=== PATIENT | male | born 1995 ===

== ENCOUNTER 2017-06-24 11:08 | Emergency (ER) | payer SELFPAY ==
[2017-06-24 11:26] VITALS: BP 119/58; PULSE 61; RESP 14; TEMP 97.7; O2SAT 99
--- NOTE | 2017-06-24 11:38 | PD ---
HPI Chief Complaint: Injury Time Seen by Provider: 11:31 Travel History International Travel<30 days: No Contact w/Intl Traveler<30days: No Traveled to known affect area: No History of Present Illness HPI 21-year-old -[place] male presents emergency department with injury to the left lateral ankle and dorsal proximal foot. 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 He now has pain and swelling in this area. He has difficulty walking without a limp. Pain is about an 8 out of 10. No numbness or tingling. No loss of function. He has been icing it with some relief. No known drug allergies. PFSH Past Medical History Medical History: Denies Significant Hx Tetanus Vaccination: < 5 Years Past Surgical History Surgical History: No Previous Surgery Social History Alcohol Use: No Tobacco Use: No Substance Use: No Allergies-Medications (Allergen,Severity, Reaction): Coded Allergies: No Known Allergies (Unverified , 06/24/17) Reported Meds & Prescriptions Reported Meds & Active Scripts Active No Active Prescriptions or Reported Medications Review of Systems Except as stated in HPI: all other systems reviewed are Neg General / Constitutional: No: Fever Eyes: No: Visual changes HENT: No: Headaches Cardiovascular: No: Chest Pain or Discomfort Respiratory: No: Shortness of Breath Gastrointestinal: No: Abdominal Pain Genitourinary: No: Dysuria Musculoskeletal: Positive: Arthralgias, Limited ROM, Pain Skin: No Rash Neurologic: No: Weakness Psychiatric: No: Depression Endocrine: No: Polydipsia Hematologic/Lymphatic: No: Easy Bruising Physical Exam Narrative GENERAL: Patient appears in mild distress per SKIN: Warm and dry. Normal color. Normal turgor. HEAD: Atraumatic. Normocephalic. EYES: Pupils equal and round. No scleral icterus. No injection or drainage. ENT: No nasal bleeding or discharge. Mucous membranes pink and moist. Pharynx is clear. Airways patent NECK: Trachea midline. Supple and nontender CARDIOVASCULAR: Regular rate and rhythm. RESPIRATORY: No accessory muscle use. Clear to auscultation. Breath sounds equal bilaterally. GASTROINTESTINAL: Abdomen soft, non-tender, nondistended. Hepatic and splenic margins not palpable. MUSCULOSKELETAL: Extremities without clubbing, cyanosis, or edema. No obvious deformities. Patient has mild swelling over the left lateral malleolus with tenderness with palpation and motion. Range of motion is limited only by pain. No loss of function. Normal neurological and vascular exam. NEUROLOGICAL: Awake and alert. No obvious cranial nerve deficits. Motor grossly within normal limits. Five out of 5 muscle strength in the arms and legs. Normal speech. PSYCHIATRIC: Appropriate mood and affect; insight and judgment normal. Data Data Last Documented VS Vital Signs Date Time Temp Pulse Resp B/P (MAP) Pulse Ox O2 Delivery O2 Flow Rate FiO2 06/24/17 11:26 97.7 61 14 119/58 (78) 99 Orders Orders Ankle, Complete ([id number]) (06/24/17 11:32) Ibuprofen (Motrin) (06/24/17 11:45) MDM Medical Decision Making Medical Screen Exam Complete: Yes Emergency Medical Condition: Yes Differential Diagnosis Left foot sprain. Left ankle sprain. Possible fracture. Narrative Course Ice is applied to the affected area Patient is given 800 mg ibuprofen p.o. X-ray of the left ankle is ordered. X-ray shows no acute fracture or dislocation. Patient was placed in David bandage and stirrup ankle splint. Patient given ibuprofen 600 mg 4 times daily #40 Patient can bear weight as tolerated. Patient is to elevate it and ice frequently. Follow-up if symptoms do not improve Diagnosis Primary Impression: Moderate left ankle sprain Qualified Codes: S93.402A - Sprain of unspecified ligament of left ankle, initial encounter Patient Instructions: Ankle Sprain (ED), Ankle Sprain Exercises (GEN), General Instructions Departure Forms: School Release, Return to School Date: Jun 25, 2017 Work Release Enter return to work date: Jun 27, 2017 Additional Instructions: Patient was placed in David bandage and stirrup ankle splint. Patient given ibuprofen 600 mg 4 times daily #40 Patient can bear weight as tolerated. Patient is to elevate it and ice frequently. Follow-up if symptoms do not improve Med/Other Pt SpecificInfo: Prescription(s) given Scripts No Active Prescriptions or Reported Meds Disposition: 01 DISCHARGE HOME Condition: Stable Alex Kelley Jun 24, 2017 11:38
[2017-06-24] MEDS ORDERED: IBUPROFEN 400 MG TAB PO ONE (11:45)
[2017-06-24] MEDS ORDERED: IBUP-232 PO (12:03)
--- NOTE | 2017-06-24 12:03 | RADRPT ---
EXAM DATE/TIME: 06/24/2017 11:52 [facility] COMPARISON: No previous studies available for comparison. INDICATIONS : Left ankle pain. Rolling injury. MEDICAL HISTORY : None. SURGICAL HISTORY : None. ENCOUNTER: Initial ACUITY: 1 day PAIN SCORE: 6/10 LOCATION: Left lateral ankle FINDINGS: Three view exam was performed of the left ankle. The bony structures are in normal alignment. Minima l soft tissue swelling. Lucency distal fibula likely artifact. The ankle mortise is intact. No radi opaque foreign bodies are seen. Bony mineralization is normal. CONCLUSION: Soft tissue swelling. Minimal lucency distal fibula likely artifact versus less likely nondisplaced f racture. Tip Montez MD on June 24, 2017 at 12:00 Board Certified Radiologist. This report was verified electronically.
== END 2017-06-24 12:19 | disposition home or self-care (01) ==
LOC: NEPK 11:08
DX: S93.402A Sprain of unspecified ligament of left ankle, initial encounter (principal); X50.3XXA Overexertion from repetitive movements, initial encounter
CPT/HCPCS: 73610; 99283; L1906